=== PATIENT | female | born 1995 | race Caucasian/White ===

== ENCOUNTER 2022-06-20 18:19 | Emergency (ER) | payer OTHER, SELFPAY ==
[2022-06-20 18:28] VITALS: BP 127/69; PULSE 80; RESP 18; TEMP 36.1; O2SAT 99; BMI 45.6
--- NOTE | 2022-06-20 19:02 | ED_ITS ---
HPI - Abdominal Pain General Chief Complaint: Post Op Complication Stated Complaint: INFECTED INCISION Time Seen by Provider: 06/20/22 18:22 History of Present Illness HPI narrative: This 27-year-old female is 6 days from a . She comes in with pain at the right side of the surgical wound and wonders if there may be an infection there. She does not report any fevers but does state that she had some chills. She is unable to see the wound itself because of her pannus. She does not report any drainage. Related Data Home Medications Medication Instructions Recorded Confirmed Hydroxazine 06/20/22 albuterol 06/20/22 baby aspirn 06/20/22 hydrocortisone 5 mg tablet mg 06/20/22 levothyroxine 125 mcg tablet mcg 06/20/22 vilazodone 40 mg tablet (Viibryd) mg 06/20/22 Previous Rx's Medication Instructions Recorded hydrocodone 5 mg-acetaminophen 325 1 tab PO Q4-6H PRN pain #15 tabs 06/20/22 mg tablet Allergies Allergy/AdvReac Type Severity Reaction Status Date / Time venom-wasp Allergy Severe Anaphylaxis Verified 06/20/22 18:41 iodine Allergy Mild Verified 06/20/22 18:41 morphine Allergy Mild hives and Verified 06/20/22 18:41 swelling sodium citrate Allergy Mild Verified 06/20/22 18:41 [From Citra pH] Sulfa (Sulfonamide Allergy Rash Verified 06/20/22 18:41 Antibiotics) icey hot Allergy Mild Uncoded 06/20/22 18:41 Review of Systems Status of ROS Reports: 10 or more systems reviewed and unremarkable except as noted in History and below Narrative Constitutional: No fevers, no weight gain or loss. Eyes: No discharge. No vision changes. HENT: No congestion, no sore throat, no ear pain. Cardiovascular: No chest pain, no palpitations. Respiratory: No shortness of breath, no wheezes, no cough. Gastrointestinal: No vomiting, no diarrhea. Abdominal pain status post C- section. Genitourinary: No dysuria, no hematuria. Musculoskeletal: Normal range of motion. Skin: No rashes, no pruritis. Neurological: No dizziness, weakness, sensory change, speech change. Endo/Heme/Allergies: No bruising or bleeding. No polydipsia. Pysch: no suicidality, no anxiety, no insomnia. All other systems reviewed and are negative. Exam Narrative: Exam Narrative: Constitutional: Well-developed, well-nourished, no acute distress. HEENT: Normocephalic, atraumatic. Neck: Normal range of motion. Nontender. Supple. Heart: Intact distal pulses. Lungs: No chest discomfort. No wheezes, rhonchi, or rales. Abdomen: Tenderness in the lower abdomen status post . Surgical wound appears normal with no sign of erythema or wound breakdown. There is no palpable seroma or abscess. Back: Normal range of motion. Extremities: Normal range of motion. No injury. Skin: Intact. No rash. Warm. No erythema or pallor. Neurologic: No altered sensation. No weakness. Alert and oriented. Psychiatric: No suicidality. No anxiety or depression. No insomnia. Nursing notes and vitals signs are reviewed. Const: Vital Signs, click to edit/add: Vital Signs - 24 hr 06/20/22 18:28 Temperature 96.9 F L Pulse Rate [Right Pulse Oximeter] 80 Respiratory Rate 18 Blood Pressure [Ri ght Upper Arm] 127/69 Pulse Oximetry 99 Oxygen Delivery Me thod Room Air Course Vital Signs Vital signs: Initial Vital Signs Temperature 96.9 F L 06/20/22 18:28 Temperature Source Temporal Artery Scan 06/20/22 18:28 Pulse Rate 80 06/20/22 18:28 Respiratory Rate 18 06/20/22 18:28 Blood Pressure 127/69 06/20/22 18:28 Blood Pressure Mean 88 06/20/22 18:28 Blood Pressure Position Sitting 06/20/22 18:28 Pulse Oximetry 99 06/20/22 18:28 Oxygen Delivery Method 06/20/22 18:28 Vital Signs Temperature 96.9 F L 06/20/22 18:28 Pulse Rate 80 06/20/22 18:28 Respiratory Rate 18 06/20/22 18:28 Blood Pressure 127/69 06/20/22 18:28 Pulse Oximetry 99 06/20/22 18:28 Oxygen Delivery Method 06/20/22 18:28 Temperature 96.9 F L 06/20/22 18:28 Pulse Rate 80 06/20/22 18:28 Respiratory Rate 18 06/20/22 18:28 Blood Pressure 127/69 06/20/22 18:28 Pulse Oximetry 99 06/20/22 18:28 Oxygen Delivery Method 06/20/22 18:28 MDM - Abdominal Pain MDM Narrative Medical decision making narrative: This patient had a 6 days ago and is concerned about increased pain in the right side of the surgical wound. The examination of this wound shows normal healing without any sign of infection. I did use bedside ultrasound for further assessment and find no evidence of seroma or abscess below the wound. This was reassuring to the patient. She did receive a prescription for some tablets of [place] for additional pain relief. Discharge Plan Discharge Clinical Impression: Abdominal pain Patient Disposition: Home, Self-Care Condition: Stable Additional Instructions: Follow up with MD as needed. Take medication as prescribed. Return if worsening. Prescriptions: New hydrocodone-acetaminophen 5-325 mg tablet 1 tab PO Q4-6H PRN (Reason: pain) Qty: 15 0RF No Action hydrocortisone 5 mg tablet Label Comments: TAKE 2 TABLETS BY MOUTH EVERY MORNING UPON WAKING AND 1 TABLET BY MOUTH ABOUT 6 HOURS LATER. DOUBLE IN TIMES OF ILLNESS levothyroxine 125 mcg tablet baby aspirn vilazodone [Viibryd] 40 mg tablet Label Comments: TAKE 1 TABLET BY MOUTH DAILY Hydroxazine albuterol Follow Up/Referrals: Tereza Barger PA-C [Primary Care Provider] - Stand Alone Forms: [employer] Info Instructions
== END 2022-06-20 19:17 | disposition home or self-care (01) ==
PROVIDERS: Emergency Provider Emergency Medicine Emergency Medical Services; PCP Physician Assistant Medical
DX: O34.219 Maternal care for unspecified type scar from previous cesarean delivery (principal)
CPT/HCPCS: 99283; 99284